=== PATIENT | male | born 1995 | race Caucasian/White ===

== ENCOUNTER 2025-10-21 09:51 | Outpatient (OUT) | payer OTHER, SELFPAY ==
--- OUTSIDE RECORDS SUMMARY | 2014-05-22 08:45 | XMS_ITS | Continuity of Care Document ---
Author [facility] Address [address] [place] [address] [place] [address] Phone Care Team Providers Care Timekeeper Supervisor Name Role Phone Unavailable Unavailable Unavailable Procedures Procedure Date OFFICE/OUTPATIENT VISIT, [facility] STREP A ASSAY W/OPTIC Advance Directives Directive Yes / No Effective Date File Name No Information Encounters Encounter Description Practice Location Reason(s) For Visit Diagnoses Date Provider Providers Copied on Encounter OFFICE/OUTPAT IENT VISIT, [facility], [address] [place] [address] [address], [place], [place], [id number], [place] tel:[phone] Aguilar [address] Dr[address] Sheikh No Information 3 4 No Information Family History Family Member Type Diagnosis Age At Onset No Information Payers Payer name Insurance type Covered democrat ID Authoriza tion(s) [employer] [id number] Social History Type Description Quantity Date Captured Comments Sex Male Smoking Status No Information Chief Complaint And Reason For Visit No Information Reason For Referral Reason For Referral No Information History Of Present Illness Encounter Date Complaint History Of Prese nt Illness No Information Functional Status Date Functional Assessmen t No Information Instructions Date Instruction Additional Infor mation No Information Assessments Type Assessment Date No Information Patient Care Teams Name Effective Dates (start - stop) Status Members No Information
--- OUTSIDE RECORDS SUMMARY | 2014-09-07 09:53 | XMS_ITS | Continuity of Care Document ---
Author Organization [facility] Address [address] [place] [address] Phone Care Team Providers Care Installation Specialist Name Role Phone Matias DO LANDERSGoyo Unavailable Unavailable Advance Directives Directive Yes / No Effective Date File Name No Information Encounters Encounter Description Practice Location Reason(s) For Visit Diagnoses Date Provider Providers Copied on Encounter [facility] , [address] [place], [place], [id number], tel:[phone] [facility] Screening exam for sexually transmitted disease Matias De Luna. [address] [place], [place], [id number], [place]. tel:[phone] Family History Family Member Type Diagnosis Age At Onset No Information Payers Payer name Insurance type Covered libertarian ID Authoriza tion(s) No Information Social History Type Description Quantity Date Captured Comments Sex Male Smoking Status No Information Chief Complaint And Reason For Visit No Information Reason For Referral Reason For Referral No Information Plan Of Treatment Date Type Action Status Future Order: Lab Order Gonorrhe a NAAT (Amp) (GONRHEA), Appointment on: Ordered Future Order: Lab Order Chlamydi a NAAT (CHLAMP), Appointment on: Ordered History Of Present Illness Encounter Date Complaint History Of Prese nt Illness No Information Functional Status Date Functional Assessmen t No Information Instructions Date Instruction Additional Infor mation No Information Assessments Type Assessment Date assessment Screening exam for sexually myers smitted disease Patient Care Teams Name Effective Dates (start - stop) Status Members No Information
--- OUTSIDE RECORDS SUMMARY | 2025-10-21 10:01 | XMS_ITS | Encounter Summary ---
Author Organization [facility] Address [address] [facility] [place] [address] Care Team Providers Care Assistant Program Director Name Role Phone WorkSolomon collins HARLEY-SHEREE Unavailable [phone] Salma Martínez MD Primary Care Provider [phone] Edd Yi PT Unavailable Unavailable Reason for Visit * ReasonCommentsRefill Encounter Details DateTypeDepartmentCare Team (Latest Contact Info)Kqidbhteqjp73/27/2025Refill [facility] [address] [place] [address] Salma Martínez MD [address] [facility] [place] [address] Refill Social History Tobacco UseTypesPacks/DayYears UsedDateSmoking Tobacco: NeverSmokeless Tobacco: NeverAlcohol UseStandard Drinks/WeekCommentsNot Currently0 (1 standard drink = 0.6 oz pure alcohol)Humiliation, Afraid, Rape, and Kick questionnaireAnswerDate RecordedWithin the last year, have you been afraid of your partner or ex-partner?No02/08/2024Within the last year, have you been humiliated or emotionally abused in other ways by your partner or ex-partner?No02/08/2024 Within the last year, have you been kicked, hit, slapped, or otherwise physically hurt by your partner or ex-partner?02/08/2024Within the last year, have you been raped or forced to have any kind of sexual activity by your part ner or ex-partner?No02/08/2024Social Connection and Isolation PanelAnswerDate RecordedIn a typical week, how many times do you talk on the phone with family, friends, or neighbors?Three times a week02/08/2024How often do you get together with friends or relatives?Once a week02/08/2024How often do you attend moravian or sikhism services?Never02/08/2024o you belong to any clubs or organizations such as moravian groups, unions, fraOndaVia or athletic groups, or school groups?No 02/08/2024How often do you attend meetings of the clubs or organizations you belong to?Never02/08/2024re you , , , , never , or living with a partner?Zetorvc5602/08/2024Overall Financial Resource Strain (CARDIA)AnswerDate RecordedHow hard is it for you to pay for the very basics like food, housing, medical care, and heating?Not very hard02/08/2024 PHQ-2AnswerDate RecordedPHQ-2 Ecuwl57412/06/2022[facility] [place] [facility] Occup[facility] - Occupational Stress QuestionnaireAnswerDate RecordedDo you feel stress - tense, restless, nervous, or anxious, or unable to sleep at night because your mind is troubled all the time - these days?Very much02/08/2024Exercise Vital SignAnswerDate RecordedOn average, how many days per week do you engage in moderate to strenuous exercise (like a brisk walk)?3 days02/08/2024On average, how many minutes do you engage in exercise at this level?20 min02/08/2024Hunger Vital SignAnswerDate RecordedWithin the past 12 months, you worried that your food would run out before you got the money to buymore.Never true02/08/2024 Within the past 12 months, the food you bought just didn't last and you didn't have money to get more.Never true02/08/2024RAPARE - TransportationAnswerDate RecordedIn the past 12 months, has lack of transportation kept you from medical appointments or from getting medications?No02/08/2024In the past 12 months, has lack of transportation kept you from meetings, work, or from getting things needed for daily living?No02/08/2024Housing Stability Vital SignAnswerDate RecordedIn the last 12 months, was there a time when you were not able to pay the mortgage or rent on time?No02/08/2024In the last 12 months, how many places have you lived?In the last 12 months, was there a time when you did not have a steady place to sleep or slept in ashelter (including now)?No 02/08/2024EducationAnswerDate RecordedWhat is the highest level of school you have completed or the highest degree you have received?Master's degree (e.g., MA, MS, [employer], MEd, FULL STACK WEB DEVELOPER, SURI)11/05/2022exually ActiveBirth ControlPartners CommentsYesI.U.D.Femalenot planning on pregnancySubstance UseTypesUse/Week CommentsNot CurrentlySex and Gender InformationValueDate RecordedSex Assigned at BirthNot on fileLegal LudVxrn9408/07/2017 12:29 PM EDTGender IdentityNot on file Sexual OrientationNot on filedocumented as of this encounter Miscellaneous Notes * Telephone Encounter - Salma Martínez MD - 08/28/2025 1:10 PM EDT changed to 3 refills. * Telephone Encounter - Noy Luu PharmD - 08/28/2025 10:47 AM EDT Pharmacy is attempting to schedule an appointment for this patient. Per protocol, we will make 1 attempt to contact patient before routing to nurse for follow up. Medication request adjusted to only a 3 month supply to allow time for appointment to be scheduled. Thank you. documented in this encounter Plan of Treatment Not on file documented as of this encounter Visit Diagnoses Diagnosis Depression, unspecified depression type MARTIN (generalized anxiety disorder) Generalized anxiety disorder Episode of recurrent major depressive disorder, unspecified depression episode severity (HCC) documented in this encounter Care Teams Team MemberRelationshipSpecialtyStart DateEnd Date Salma Martínez MD [address] [facility] [place] [address] PCP - GeneralFamily Rhxppegr69/7/23 Solomon Travis APRN-PRESS ASSISTANT AND FEEDER [address] [facility] [place] [address] APNPulmonary Medicine01/31/23 Edd Yi, PT [address] [place] [address] Physical TherapistPhysical Therapy03/05/24documented as of this encounter
--- OUTSIDE RECORDS SUMMARY | 2025-10-21 10:01 | XMS_ITS | Continuity of Care Document ---
Author Organization [facility] Address [address] [place] [address] Care Team Providers Care Store Merchandiser Name Role Phone WorkmanSolomon HARLEY-MANAGER RESPIRATORY CARE Unavailable [phone] Nikky Martínez MD Primary Care Provider [phone] Edd Yi PT Unavailable Unavailable Source Comments The following information is NOT included in Care Everywhere downloads:Psychiatric notes, ECG results, Cardiac Rehab notes, Pulmonary Function notes, data from SmartForms (includes but not limited toPregnancy data,audiograms, eye exams, pre-surgical evaluation notes, well-child exam data).[facility] Encounters DateTypeDepartmentCare HwmxKmnvorhqpah92/27/2025Refill [facility] [address] [place] [address] Nikky Martínez MD Hmlobk8807/30/2024[place]ill [place] [address] Nikky Martínez MD Myaajn2403/31/20241615Ykkkko59/02/2024 9:00 AM [facility] [address] [place] [address] Edd Yi, PT PT Discharge Summary (Visit #7)03/24/20248597Lzcnkx60/25/2024 7:30 AM [facility] [address] [place] [address] Edd Yi, PT PT Visit # (6)03/17/20244442Rtnlyw61/18/2024 8:15 AM [facility] [address] [place] [address] Edd Yi, PT PT Progress Note (Visit #5)03/10/20247246Jksjyt95/11/2024 8:15 AM [facility] [address] [place] [address] Edd Yi, PT PT Visit # (4)03/03/20240553Vykdqp50/04/2024 8:15 AM [facility] [address] [place] [address] Edd Yi, PT PT Visit # (3)02/25/20240107Wmejmt45/19/3001Yanzre54/19/2024 11:15 AM [facility] [address] [place] [address] Edd Yi, PT PT Visit # (2)02/11/2024 5:15 PM [facility] [address] [place] [address] Edd Yi, PT PT Eval (Cervical Radiculopathy with Shoulder Pain)10/06/20232613Yzldnd08/07/2023 8:00 AM ESTOffice Visit [facility] [address] [place] [address] Nikky Martínez MD Annual physical exam (Primary Dx); Need for hepatitis C screening test; Major depressive disorder, recurrent, severe without psychotic features (HCC); MARTIN (generalized anxiety disorder); BMI 38.0-38.9,adult; Chronic pain of both shoulders; Wears vsvrqrl1807/31/2023Refill [facility] [address] [place] [address] Nikky Martínez MD Xqqrwt6104/15/2023 1:40 PM EDTTelemedicine [facility] [address] [place] [address] KatkarinaSolomon APRN-CNP BRIAN on CPAP (Primary Dx); Class 3 severe obesity due to excess calories without serious comorbidity with body mass index (BMI) of 40.0 to 44.9 in adult (HCC)12/31/2022 2:20 PM EST Telemedicine [facility] [address] [place] [address] KatkarinaSolomon APRN-CNP BRIAN (obstructive sleep apnea) (Primary Dx); Class 3 severe obesity due to excess calories without serious comorbidity with body mass index (BMI) of 40.0 to 44.9 in adult ([facility]); Snoring; Daytime fviushtfal37/14/2023Refill [facility] [address] [place] [address] Nikky Martínez MD Vzfpaf6711/08/2022 9:00 PM ESTSleep Study Visit [facility] [address] [place] [address] Snoring (Primary Dx)11/05/2022Telephone [facility] [address] [place] [address] MyrnaFredo feliciano 2Refill [facility] [address] [place] [address] Arash Valera MD Ygoald1707/15/2022efill [facility] [address] [place] [address] Nikky Martínez MD Cdejyr2205/29/2022bstract PATIENT ACUITY SCORE 05/13/2022Telephone [facility] [address] [place] [address] Nikky Martínez MD Encounter opened in error05/08/2022 4:00 PM EDTOffice Visit [facility] [address] [place] [address] Nikky Martínez MD Annual physical exam (Primary Dx); Fatigue, unspecified type; Snoring; Body mass index (BMI) 40.0-44.9, adult ([facility])03/06/2022Telephone [facility] [address] [place] [phone] Nikky Martínez MD speak with /06/2022Refill [facility] [address] [place] [address] Nikky Martínez MD Fzqzjq691Refill [facility] [address] [place] [address] Nikky Martínez MD Kojltd0202/21/2021Orders Only [facility] Internal Medicine [address] [place], [place] [phone] Edwina Tyler MD 07/14/2020Refill [facility] [address] [place], [place] [phone] Nikky Martínez MD APPOINTMENT SCHEDULING; Ljhcsp6101/09/2020Refill [facility] [address] [place], [place] [address] Arash Valera MD Ywvqqa0208/04/2019 8:20 AM EDTOffice Visit [facility] [address] [place] [address] Anisa Palacios MD Prostatitis, unspecified prostatitis type (Primary Dx)06/29/2019Refill [facility] [address] [place], [place] [phone] Anisa Palacios MD Qdjofw0906/16/2019 12:20 PM EDTOffice Visit [facility] [address] [place], [place] [phone] Anisa Plaacios MD Prostatitis, unspecified prostatitis type (Primary Dx)05/26/2019 8:00 AM EDT Office Visit [facility] Medicine [address] [place] [phone] Nikky Martínez MD Depression, unspecified depression type (Primary Dx); MARTIN (generalized anxiety disorder); Episode of recurrent major depressive disorder, unspecified depression episode severity (HCC); Frequent urination; Dysuria; Testicular pain; Screening for STD (sexually transmitted disease); BMI 36.0-36.9,adult03/30/2019Refill [place] [address]509 Arash Valera MD Txspel2508/31/2018Refill [place] 0107509 Arash Valera MD Zgivmm6105/23/2018Refill [place] [address]509 Arash Valera MD Ktiinr4801/18/2018 1:40 PM ESTOffice Visit [place] [phone] Arash Valera MD Episode of recurrent major depressive disorder, unspecified depression episode severity (HCC) (Primary Dx); Tinnitus, bilateral; FH: hearing loss; Excessive daytime sleepiness; Depression, unspecified depression type; MARTIN (generalized anxiety disorder); Major depressive disorder, recurrent, severe without psychotic features (HCC) 10/15/2017 2:00 PM ESTOffice Visit [address] [address] Arash Valera MD Episode of recurrent major depressive disorder, unspecified depression episode severity (HCC) (Primary Dx); Major depressive disorder, recurrent, severe without psychotic features (HCC); Gynecomastia, male; History of ETOH abuse; Excessive daytime jdxlfoilcd92/21/2017 2:00 PM EDTOffice Visit [address] [address] Arash Valera MD Episode of recurrent major depressive disorder, unspecified depression episode severity (HCC) (Primary Dx); MARTIN (generalized anxiety disorder); Depression, unspecified depression type; Routine general medical examination at a health care /08/2017 12:30 PM EDTOffice Visit [facility] [address] [place] [address], [address] [place] [phone] Freddie Ag, ENGAGEMENT QUALITY CONSULTANT-MANAGER RESPIRATORY CARE Depression, unspecified depression type (Primary Dx) Allergies Active AllergyReactionsCriticalityNoted DateCommentsAmoxicillinDiarrhea 06/14/2016 Medications MedicationSigDispense QuantityRefillsLast FilledStart DateEnd DateStatus FLUoxetine (PROZAC) 20 MG capsule Indications:Depression, unspecified depression type,MARTIN (generalized anxiety disorder),Episode of recurrent major depressive disorder, unspecified depression episode severity (HCC)Take 1 Capsule by mouth daily. 90 Capsule 5Active Active Problems ProblemNoted DateDiagnosed DateRadiculopathy, pnzahaui68/18/2024ilateral shoulder pain02/10/2024bnormal ytymwph9702/10/2024FH: hearing loss01/18/2018 Tinnitus, gnljfjezz06/19/2018Gynecomastia, male11/11/2017Major depressive disorder, recurrent, severe without psychotic ugvmyajb80/22/2016 Overview (09/02/2017): Overview: 08/15/16 (PCP) - Establishing care at [facility], [facility] (PCP Dr. 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 Goals ??? Abstinence from alcohol While enrolled in PHP/IOP, Justin agrees to abstain from drinking alcohol or using illicit substances. Justin understands that if he has issues with this, he can always talk with staff and considerattending 12 step meetings. 06/26: Improvement. Justin reports continued abstinence from alcohol since starting the program andhas been forthcoming in groups about urges to drink. He reports successfully navigating these urgesby utilizing the support of his girlfriend. 07/07: Justin reports that he has and continues to maintain abstinence from alcohol despite several opportunities to drink. Justin has reported that he continues to have urges, but is able to recognize that his most powerful urges come when he is agitated or irritated, and is able to tell himself that these may be the worst times to drink. He continues to utilize the support of his girlfriend in this endeavor. ??? Aftercare Justin agrees to actively participate in discharge and aftercare planning. Prior to discharge, Justin will have appointments set up with an outpatient counselor as well as an outpatient psychiatrist. Tentative discharge date: 07/18/1607/07: Justin reports that he feels ready for discharge by the end of this week. He agrees to make an an appointment with his current outpatient counselor at [facility] for sometime next week. ??? Assertiveness Training By the conclusion of treatment, Justin will report increased awareness in communication skills, communication styles, and will know how to use an Assertiveness Script. Justin will attend all groupson interpersonal effectiveness and will utilize process group to practice being assertive. 07/07: Justin's treatment here has focused primarily on abstinence from alcohol and learning how to engage with his emotions. He has been able to recognize a tendency to get lost in his thoughts and resentments as well as a tendency to feel better when he engages with others, including by making eyecontact. This insight shows evidence in improved assertiveness. He will attend Assertiveness Training group this week before discharge. ??? Emotional Literacy By the conclusion of treatment, Justin will report a better understanding of emotions from a functional perspective, will be able to discern between thoughts (which can be challenged) and emotions (which need to be validated), he will begin using basic Emotional Regulation skills, and will report an improved ability to address his emotions effectively rather than stuff them. 06/26: Marked improvement. Justin has shown a willingness to engage with and express his feelings in group and has shown a great deal of effort in practicing authenticity in front of his peers. 07/07: Marked improvement. Justin continues to demonstrate consistent improvement in his ability to not only identify and describe his emotions on cue, but also to explore thoughts and behaviors that may contribute to his emotional state. He continues to have some struggles with recognizing and regulating anger, frustration, irritation, etc. He is able to recognize how his upbringing may have contributed to this, as he learned at a young age that it was not okay to be upset or to experience emotions that bother him. Subsequently, Justin tries to stuff his emotions which has the opposite intended effect. Justin agrees to try out a mood/emotions journal, either pen and paper or an baljit for his phone. ??? Taking medication as prescribed - medication compliance Justin agrees to take medications as prescribed and will talk with staff if he has any questions or experiences any side effects. Justin does not anticipate any compliance issues with medication atthis time. He will follow up with SHEREE Garcia throughout his enrollment in PHP/IOP. MARTIN (generalized anxiety disorder)11/30/2015 Overview (09/02/2017): Overview: 08/15/16: MARTIN-7: 11 Resolved Problems ProblemNoted DateDiagnosed DateResolved DateExcessive daytime sleepiness Serotonin iimwxofj35 Overview (08/20/2017): Mild, while was on prozac 20mg. Was told he was okay to continue 20mg, but changed to AM. No current sx. Alcohol use ftiroijd95 Overview (09/02/2017): Overview: 08/15/16 (PCP): - Endorsed 20 drinks/wk with cravings during IP admission in 05/2016 - Started on naltrexone to reduce cravings after 05/2016 admission - Has father and paternal grandfather with alcoholism MDD (major depressive disorder) Immunizations ImmunizationAdministration DatesNext DueInfluenza, Injectable, MDCK, Quadrivalent, Preservative Free (NWH=444)09/26/2022Influenza, injectable, quadrivalent, preservative free (UQB=497)09/18/2023Influenza, injectable, trivalent, preservative free (MPK=179)4Pfizer Monovalent (12+ yrs) SARS-COV-2 (COVID-19) vaccine, mRNA, spike protein, LNP, pres. free, 30mcg/0.3mL dose (KYU=549)03/18/2021,02/25/2021Td (adult), 2 Lf tetanus toxoid, preservative free, adsorbed (CVX=09)06/14/2016Tdap (RXQ=819)02/25/2022 Family History Medical HistoryRelationNameCommentsDiabetes MellitusFatherHypertensionFather Hearing LossMaternal GrandmotherHearing LossMotherCancerPaternal Grandfather pancreatic cancerMyocardial InfarctionPaternal GrandfatherPancreatic Cancer Paternal GrandmotherRelationNameStatusCommentsFatherAliveMaternal Grandfather AliveMaternal GrandmotherAliveMotherAlivePaternal GrandfatherDeceasedPaternal GrandmotherDeceased Social History Tobacco UseTypesPacks/DayYears UsedDateSmoking Tobacco: Never Assessed Humiliation, Afraid, Rape, and Kick questionnaireAnswerDate RecordedWithin the last year, have you been afraid of your partner or ex-partner?No02/08/2024Within the last year, have you been humiliated or emotionally abused in other ways by your partner or ex-partner?No02/08/2024Within the last year, have you been kicked, hit, slapped, or otherwise physically hurt by your partner or ex-partner?No02/08/2024Within the last year, have you been raped or forced to have any kind of sexual activity by your partner or ex-partner?No02/08/2024 Social Connection and Isolation PanelAnswerDate RecordedIn a typical week, how many times do you talk on the phone with family, friends, or neighbors?Three times a week02/08/2024How often do you get together with friends or relatives? Once a week02/08/2024How often do you attend jehovah's witness or baptist services?Never 02/08/2024o you belong to any clubs or organizations such as jehovah's witness groups, unions, fraternal or athletic groups, or school groups?No02/08/2024How often do you attend meetings of the clubs or organizations you belong to?Never02/08/2024 Are you , , , , never , or living with a partner?Swagvpp2002/08/2024Overall Financial Resource Strain (CARDIA)AnswerDate RecordedHow hard is it for you to pay for the very basics like food, housing, medical care, and heating?Not very hard02/08/2024HQ-2AnswerDate RecordedPHQ-2 Youpg14912/06/2022[facility] [place] [facility] Occup[facility] Health - Occupational Stress QuestionnaireAnswerDate RecordedDo you feel stress - tense, restless, nervous, or anxious, or unable to sleep at night because yourmind is troubled all the time - these days?Very much02/08/2024Exercise Vital SignAnswerDate RecordedOn average, how many days per week do you engage in moderate to strenuous exercise (like a brisk walk)?3 days02/08/2024On average, how many minutes do you engage in exercise at this level?20 min02/08/2024Hunger Vital SignAnswerDate Recorded Within the past 12 months, you worried that your food would run out before you got the money to buymore.Never true02/08/2024Within the past 12 months, the food you bought just didn't last and you didn't have money to get more.Never true 02/08/2024RAPARE - TransportationAnswerDate RecordedIn the past 12 months, has lack of transportation kept you from medical appointments or from getting medications?No02/08/2024In the past 12 months, has lack of transportation kept you from meetings, work, or from getting things needed for daily living?No 02/08/2024Housing Stability Vital SignAnswerDate RecordedIn the last 12 months, was there a time when you were not able to pay the mortgage or rent on time?No 02/08/2024In the last 12 months, how many places have you lived?In the last 12 months, was there a time when you did not have a steady place to sleep or slept in ashelter (including now)?No02/08/2024EducationAnswerDate RecordedWhat is the highest level of school you have completed or the highest degree you have received?Master's degree (e.g., MA, MS, [employer], MEd, BATCH M[employer]ING [employer]UCK [employer], SURI) 11/05/2022ex and Gender InformationValueDate RecordedSex Assigned at BirthNot on fileLegal CpxUsty0508/07/2017 12:29 PM EDTGender IdentityNot on fileSexual OrientationNot on file Last Filed Vital Signs Vital SignReadingTime TakenCommentsBlood Dtglsxno991/6710/06/2023 8:07 AM EST Qcntw933910/06/2023 8:07 AM PHUTtxovfnytca47.4 ??C (97.6 ??F)10/06/2023 8:07 AM ESTRespiratory Ealt9887 8:13 AM EDTOxygen Saturation--Inhaled Oxygen Concentration--Bkaime271.7 kg (275 lb)10/06/2023 8:07 AM DAZLoltom497.7 cm (5' 10.75 )10/06/2023 8:07 AM ESTBody Mass Index38.6310/06/2023 8:07 AM EST Plan of Treatment Not on file Procedures Procedure NamePriorityDate/TimeAssociated DiagnosisCommentsEMMI SOCIAL DHBYEZZJVVHohiwzd05/12/2024 1:24 PM EDT HEMOGLOBIN M9TZhunewq39/07/2023 8:41 AM EST BMI 38.0-38.9,adult FULL LIPID YQEIYPSCkqmzrp24/07/2023 8:41 AM EST BMI 38.0-38.9,adult HEPATITIS C NSCLGAQDEovxuxm98/07/2023 8:41 AM EST Need for hepatitis C screening test SLEEP STUDY (BRIAN/PSG) SERVICE YROCUQFSptkbuy81/10/2022 8:58 AM EST Snoring HIV1 HIV2 AGAB PFNNOlyemlx73/09/2022 4:15 PM EDT Fatigue, unspecified type HC HEPATIC FUNCTION IVYRUFdmdaov68/09/2022 4:15 PM EDT Fatigue, unspecified type BASIC METABOLIC ELPSIIiqpnmy70/09/2022 4:15 PM EDT Fatigue, unspecified type YDPLxrlluj41/09/2022 4:15 PM EDT Fatigue, unspecified type COMPLETE BLOOD MWUSNSqltiog12/09/2022 4:15 PM EDT Fatigue, unspecified type FULL LIPID KNTKDMYPwngjtq33/09/2022 4:15 PM EDT Annual physical exam HEMOGLOBIN I2AJjwreot06/09/2022 4:15 PM EDT Annual physical exam URINALYSIS,AUTO-IN CSLRVWDozprxg89/18/2019 1:16 PM EDT Prostatitis, unspecified prostatitis type US SCROTUM/DOPPLER (VAISHNAVI)Xheqtdb8906/09/2019 8:40 AM EDT GLUCOSE, FINGERSTICK-IN SLSVUMGwlhkru85/27/2019 9:05 AM EDT Frequent urination GC/CHLAMYDIA/TRICHOMONAS LTEBJOLHBDOTDEkovgwh06/27/2019 8:54 AM EDT Screening for STD (sexually transmitted disease) SYPHILIS TOTAL ANTIBODY (IGG/IGM) WITH REFLEX CONFIRMATION, SERUMRoutine 05/26/2019 8:54 AM EDT Screening for STD (sexually transmitted disease) HIV1 HIV2 AGAB JAUAHagvwxo75/27/2019 8:54 AM EDT Screening for STD (sexually transmitted disease) FULL LIPID UHZNUOBLwvzoyu36/27/2019 8:54 AM EDT BMI 36.0-36.9,adult HEMOGLOBIN A8WYrobpid27/27/2019 8:54 AM EDT Frequent urination URINALYSIS,AUTO-IN UYNNPVAgrkqgc39/27/2019 8:30 AM EDT Dysuria Results * YUSUF SOCIAL CONNECTION (02/09/2024 1:24 PM EDT)ComponentValueRef RangeTest MethodAnalysis TimePerformed AtPathologist SignatureEMMI [facility] - WHAT IS SOCIAL ISOLATION?NELLY URL [email or web address] ISSUE DATEFeb 09, 2024EMMIEMMI START DATE Feb 09, 2024EMMIEMMI COMPLETED 2023EMMIEMMI EXPIRATION DATEMay 09, 2024EMMIEMMI MESSAGE EVENTCompletedEMMISpecimen (Source)Anatomical Location / LateralityCollection Method / VolumeCollection TimeReceived Time02/09/2024 1:24 PM EDT Narrative Authorizing ProviderResult TypeResult StatusPatient Education Provider (Yusuf)EC EMMIFinal ResultPerforming OrganizationAddressCity/State/ZIP CodePhone Number YUSUF [address] [place] [address] * HEPATITIS C ANTIBODY (10/06/2023 8:41 AM EST)ComponentValueRef RangeTest MethodAnalysis TimePerformed AtPathologist SignatureHepatitis C AbNonreactive Bwpccnyiipe33/07/2023 3:49 PM ESTS PATHOLOGY LABORATORYSpecimen (Source) Anatomical Location / LateralityCollection Method / VolumeCollection Time Received TimeBloodBLOOD SPECIMEN / UnknownVenipuncture / Xpexcyn4210/06/2023 8:41 AM EST10/06/2023 2:35 PM EST Narrative Authorizing ProviderResult TypeResult StatusNikky LAN[place] HIV/HEP/SYPH TESTINGFinal ResultPerforming OrganizationAddressCity/State/ZIP CodePhone Number S PATHOLOG[facility] LAB[facility] [address] [place] [address] * (ABNORMAL) FULL LIPID PROFILE (10/06/2023 8:41 AM EST)ComponentValueRef Range Test MethodAnalysis TimePerformed AtPathologist PcswskkgcPbkatpevehl870<200 mg/dL10/06/2023 3:02 PM [facility] PATHOLOGY OLDYTHLJPDRkeyrcfozgcpk409<151 mg/dL 10/06/2023 3:02 PM [facility] PATHOLOGY LABORATORYHDL Bvlmchnagja60(L)>44 mg/dL 10/06/2023 3:02 PM [facility] PATHOLOGY LABORATORYLDL aafxqcudphu98<111 mg/dL 10/06/2023 3:02 PM [facility] PATHOLOGY LABORATORYNon-HDL Wjjmrvipsux84<130 mg/dL 10/06/2023 3:02 PM [facility] PATHOLOGY LABORATORYChol/HDL Ratio3.54<5.00 10/06/2023 3:02 PM [facility] PATHOLOGY LABORATORYLDL/HDL Ratio2.18<3.5710/06/2023 3:02 PM [facility] PATHOLOGY LABORATORYSpecimen (Source)Anatomical Location / LateralityCollection Method / VolumeCollection TimeReceived TimeBloodBLOOD SPECIMEN / UnknownVenipuncture / Cufsbvy9010/06/2023 8:41 AM EST10/06/2023 2:39 PM EST Narrative Authorizing ProviderResult TypeResult Wyatt [facility] LABFinal ResultPerforming OrganizationAddressCity/State/ZIP CodePhone Number [facility] PATHOLOGY LABORATORY [address] [place] [address] * HEMOGLOBIN A1C (10/06/2023 8:41 AM EST)ComponentValueRef RangeTest Method Analysis TimePerformed AtPathologist SignatureHemoglobin A1c5.14.0 - 5.6 % 10/06/2023 9:38 PM [facility] PATHOLOGY LABORATORYEstimated Avg Iggwszl525vf/dL10/06/2023 9:38 PM [facility] PATHOLOGY LABORATORYSpecimen (Source)Anatomical Location / LateralityCollection Method / VolumeCollection TimeReceived TimeBloodBLOOD SPECIMEN / UnknownVenipuncture / Yxrpjpj6710/06/2023 8:41 AM EST10/06/2023 2:36 PM EST Narrative Authorizing ProviderResult TypeResult Wyatt [facility] LABFinal ResultPerforming OrganizationAddressCity/State/ZIP CodePhone Number [facility] PATH[facility] [address] [place], [place] [address] * SLEEP STUDY (BRIAN/PSG) SERVICE REQUEST (11/08/2022 8:58 AM EST)Specimen (Source)Anatomical Location / LateralityCollection Method / VolumeCollection TimeReceived Time11/08/2022 8:58 AM EST Narrative [facility] - 11/08/2022 8:58 AM EST DIAGNOSTIC POLYSOMNOGRAPHY REPORT Last, First: ??JUSTIN CAZARES ?? Gender: ??Male ??Age (years): ??27 Weight (lbs): ??292.30 ??: ??1995 BMI: ??42 ??Referring: ??NIKKY MARTÍNEZ [place] Score: ??11 ??Interpreting: ??Roxi James MD Construction Supervisor: ??Luz Elena Webber ?? Study Type: ??NPSPaty Study Date: ??11/08/2022 ??Location: ??[facility] STUDY SUMMARY: DIAGNOSES: - Severe Obstructive Sleep Apnea (G47.33) - Obesity Class 3 PSG with an AHI of 9.3 by CMS criteria vs. 31.1 by AASM criteria, associated with oxyhemoglobin desaturations to a vishnu of 89.0%. Obstructive sleep apnea was worse during REM sleep and in the supine position. BMI 42 kg/m2; ESS 11 out of 24 CLINICAL INFORMATION: I reviewed each epoch of the polysomnogram of JUSTIN CAZARES performed on 11/08/2022 at [place] ([facility]): [place] [facility] [place] [address] Study indication: This study was obtained to evaluate for sleep disordered breathing. The patient complains of Excessive Daytime Sleepiness, Snoring, Not feeling refreshed after sleep. Medical history is significant for MARTIN, depression. Sleep behaviors: See questionnaire. Patient-reported prescribed medications include: flouxetine. Patient self-administered medications on the night of the study include: No sleep medicine administered. SLEEP STUDY PROTOCOL: Sleep stages were monitored with EEG (F4-M1, C4-M1, O2-M1), EOG (E1-M2, E2-M2), and submental EMG. Arterial oxygen saturation was followed with a finger-pulse oximeter. Air flow was sensed by both oronasal thermistor and oronasal pressure transducer during the diagnostic phase of the study. Respiratory effort was monitored with chest wall and abdominal RIP belts. Snoring was detected with a microphone near the mouth. Oxygen saturation was monitored by pulse oximetry. Precordial leads followed cardiac rhythm. EMG monitoring of each leg was performed during this study. Body position was determined by video monitoring. Special monitoring: ??None Apneas were scored as a reduction of airflow in the thermistor signal by at least 90% from baselinefor at least 10 seconds with continued effort to breath (obstructive) or in the absence of effort (central) or a combination of both (mixed). Hypopneas were scored as a >=30% decrease in airflow associated with either a 4% decrease in oxygen saturation ([facility] AHI) or either a 3% decrease in oxygen saturation or an arousal (AASM AHI). Respiratory event-related arousals (RERAs) were scored if there is a sequence of breaths lasting at least 10 seconds, characterized by increasing respiratory effort or flattening of the nasal pressure waveform leading to an arousal from sleep, when the sequence of breaths does not meet criteria for an apnea or hypopnea. The CMS respiratory disturbance index (RDI) reported below is calculated by adding apneas plus hypopneas plus RERAs. Hypoventilation and Regan Sarmiento Respiration are scored according to the Rules for Scoring Respiratory Events in Sleep: Update of the 2007 AASM Manual for the Scoring of Sleep and Associated Events (J Clin Sleep Med, August 2012). This was a diagnostic study. No therapeutic intervention was performed. SLEEP ARCHITECTURE: The study was initiated at 9:21:31 PM and terminated at 05:42:49 AM, with lights out at 10:33:45 PMand lights on at 05:23:53 AM. The total recorded time was 493.1 minutes. EEG confirmed total sleep time was 328 minutes yielding a sleep efficiency of 80.0%. Sleep onset after lights out was 41.3 minutes with a REM latency of 139.0 minutes. The patient spent 4.4% of total sleep time in Stage N1, 65.1% in Stage N2, 9.1% in Stages N3, and 21.3% in REM. Wake after sleep onset (WASO] was 41.0 minutes. The Arousal Index was 26.5/hour. No significant abnormalities were observed in the electroencephalogram tracings. Sleep efficiency was reduced. Sleep latency was normal. REM latency was prolonged. Stage N3 sleep was reduced. REM sleep was normal. RESPIRATORY PARAMETERS: Snoring of moderate intensity and intermittent flow limitation were noted. There were a total of 170 respiratory disturbances out of which 7 were apneas ( 1 obstructive, 0 mixed, 6 central) and 163 hypopneas. The apnea/hypopnea index (AHI) was 9.3 by CMS criteria and 31.1 by AASM criteria. The central sleep apnea index was 1.1 events/hour. The REM AHI was 57.4 events/hour and NREM AHI was 24.0 events/hour. The supine AHI was 37.7 events/hour and the non supine AHI was 17.5. Respiratory disturbances were associated with oxygen desaturation down to a vishnu of 89.0% during sleep. The mean oxygen saturation during the study was 95.2%. The cumulative time under 88% oxygen saturation was 0 minutes. LEG MOVEMENT DATA: There were 0 periodic limb movements (PLMs). The PLM index was 0 per hour. There were 0 arousals related to PLMs and the PLM arousal index was 0 per hour. CARDIAC DATA: The average pulse rate was 66.6 bpm. The minimum pulse rate was 52.0 bpm while the maximum pulse rate was 102.0 bpm. Additonal rhythm abnormalities include: PVCs. IMPRESSIONS: - Severe Obstructive Sleep apnea(BRIAN) RECOMMENDATIONS: - Positive airway pressure or adjunctive therapies are indicated for the patient's sleep apnea. Consider Auto CPAP 6-16 cm H2O. - Weight management is beneficial to the patient's health and should be considered. Authorizing ProviderResult TypeResult StatusSadaniel LANGFORD SLEEP LABFinal ResultPerforming OrganizationAddressty/State/ZIP CodePhone Number [facility] [address] [place] [address], [facility] [[email or web address]] * HIV1 HIV2 AGAB SCRN (05/08/2022 4:15 PM EDT)ComponentValueRef RangeTest Method Analysis TimePerformed AtPathologist SignatureHIV Ag-Ab ScreenNon-Reactive Non-Rmvznyia66/09/2022 10:45 PM [facility] LABORATORYComment:No laboratory evidence for HIV Infection. Negative result does not rule out acute HIV infection. Ifacute HIV infection is suspected, recommend ordering an HIV-1 RNA quanitification test.Specimen (Source)Anatomical Location / Laterality Collection Method / VolumeCollection TimeReceived TimeBloodBLOOD SPECIMEN / UnknownVenipuncture / Hhmtsgy6305/08/2022 4:15 PM EDT05/08/2022 8:21 PM EDT Narrative [facility] - 05/08/2022 10:45 PM EDT HIV Information: ??[place] Rev. code 3701.243(E): This information has been disclosed to you from confidential records protected from disclosure by state law. ??You shall make no further disclosure of this information without the specific, written, and informed release of the individual to whom it pertains, or as otherwise permitted by state law. ??A general authorization for the release of medical or other information is not sufficient for the purpose of the release of HIV test results or diagnoses. Authorizing ProviderResult TypeResult StatusSadaniel LANGFORD HIV/HEP/SYPH TESTINGFinal ResultPerforming OrganizationAddressPomerene Hospital/State/ZIP CodePhone Number [facility] [address] [place] [address] * (ABNORMAL) HEPATIC FUNCTION PANEL (05/08/2022 4:15 PM EDT)ComponentValueRef RangeTest MethodAnalysis TimePerformed AtPathologist SignatureAlbumin4.53.4 - 5.1 g/dL05/08/2022 10:06 PM [facility] LABORATORYBilirubin, Direct<0.10 (L)0.10 - 0.30 mg/dL05/08/2022 10:06 PM [facility] LABORATORYBilirubin, Total0.40.1 - 1.5 mg/dL05/08/2022 10:06 PM ED[facility] PATH[facility]Y LABORATORYAlkaline Jlstuwmlrht7816 - 190 IU/L05/08/2022 10:06 PM [facility] LABORATORYALT (SGPT)237 - 40 IU/L05/08/2022 10:06 PM [facility] LABORATORYAST (SGOT)21 7 - 40 IU/L05/08/2022 10:06 PM [facility] LABORATORYProtein, Total6.76.2 - 8.3 g/dL05/08/2022 10:06 PM [facility] LABORATORYSpecimen (Source) Anatomical Location / LateralityCollection Method / VolumeCollection Time Received TimeBloodBLOOD SPECIMEN / UnknownVenipuncture / Zpxagul4205/08/2022 4:15 PM EDT05/08/2022 8:21 PM EDT Narrative Authorizing ProviderResult TypeResult StatusSadaniel Martínez MD98 GENERAL LABFinal ResultPerforming OrganizationAddressCity/State/ZIP CodePhone Number [facility] [address] [place] [phone] * BASIC METABOLIC PANEL (05/08/2022 4:15 PM EDT)ComponentValueRef RangeTest MethodAnalysis TimePerformed AtPathologist ZhroumvdaTeqcwwt2006 - 110 mg/dL 05/08/2022 9:56 PM [facility] BNTKPDJYKPAfbgnq697080 - 148 mmol/L 05/08/2022 9:56 PM [facility] LABORATORYPotassium4.03.3 - 5.3 mmol/L 05/08/2022 9:56 PM [facility] LABORATORYCarbon Lgxsoli9677 - 30 mmol/L 05/08/2022 9:56 PM [facility] LKUILLJFNRGtljfkky59380 - 111 mmol/L 05/08/2022 9:56 PM [facility] LABORATORYBlood Urea Vfvmpfsj961 - 22 mg/dL05/08/2022 9:56 PM [facility] LABORATORYCreatinine0.830.80 - 1.30 mg/dL05/08/2022 9:56 PM [facility] LABORATORYCalcium9.18.4 - 10.4 mg/dL 05/08/2022 9:56 PM [facility] LABORATORYAnion Arr8339 - 9:56 PM [facility] LABORATORYEstimated GFR (CKD-EPI)122>=60 mL/min/1.68uqv5305/08/2022 9:56 PM [facility] LABORATORYComment: 2020 CKD EPI Equation using Creatinine without Race Comment: ??Estimated glomerular filtration rate (eGFR) is calculated without a race coefficient. Values should be interpreted in the context of the patient's full clinical presentation. Reference: 1. Rico C, Marshal M, Meir GAMINO, et al.. A Unifying Approach for GFR Estimation: Recommendations of the NKF-ASN Task Force on Reassessing the Inclusion of Race in Diagnosing Kidney Disease. AmericanJournal of Kidney Diseases 202;79(2):268-88.e1. 2. N Engl J Med 2021 Vol. 385 Issue 19 Pages 9722-1940 Specimen (Source)Anatomical Location / LateralityCollection Method / Volume Collection TimeReceived TimeBloodBLOOD SPECIMEN / UnknownVenipuncture / Unknown 05/08/2022 4:15 PM EDT05/08/2022 8:21 PM EDT Narrative Authorizing ProviderResult TypeResult StatusSadaniel Martínez MD98 GENERAL LABFinal ResultPerforming OrganizationAddressCity/State/ZIP CodePhone Number [facility] [address] [place] [phone] * (ABNORMAL) COMPLETE BLOOD COUNT (05/08/2022 4:15 PM EDT)ComponentValueRef RangeTest MethodAnalysis TimePerformed AtPathologist SignatureWBC8.04.5 - 11.5 K/uL05/08/2022 8:21 PM [facility] LABORATORYRBC4.914.50 - 5.90 M/uL 05/08/2022 8:21 PM [facility] IWTNBOOXFODtcqvzwwit88.7(L)13.9 - 16.3 g/dL05/08/2022 8:21 PM [facility] KTPOJGDCNWPbljuxbpzd00.0(L)41.0 - 53.0 %05/08/2022 8:21 PM [facility] AXDWKZDGTZEGU6774 - 100 fL05/08/2022 8:21 PM [facility] VJENUNWDEVJKL31.026.0 - 34.0 pg05/08/2022 8:21 PM [facility] OPQBMGCYMQAJRY79.332.0 - 35.9 g/dL05/08/2022 8:21 PM [facility] UYTQPHACADVusyumej327070 - 400 K/uL05/08/2022 8:21 PM [facility] LABORATORYRDW-CV13.111.5 - 14.5 %05/08/2022 8:21 PM [facility] LABORATORYMPV9.07.5 - 11.2 fL05/08/2022 8:21 PM [facility] Specimen (Source)Anatomical Location / LateralityCollection Method / Volume Collection TimeReceived TimeBloodBLOOD SPECIMEN / UnknownVenipuncture / Azsuoin2505/08/2022 4:15 PM EDT05/08/2022 8:13 PM EDT Narrative Authorizing ProviderResult TypeResult Wyatt MCHUGH GENERAL LABFinal ResultPerforming OrganizationAddressty/State/ZIP CodePhone Number [facility] [address] [place] [phone] * TSH (05/08/2022 4:15 PM EDT)ComponentValueRef RangeTest MethodAnalysis Time Performed AtPathologist SignatureTSH1.5590.450 - 5.330 uIU/mL05/08/2022 10:11 PM [facility] LABORATORYSpecimen (Source)Anatomical Location / LateralityCollection Method / VolumeCollection TimeReceived TimeBloodBLOOD SPECIMEN / UnknownVenipuncture / Udcehug9605/08/2022 4:15 PM EDT05/08/2022 8:21 PM EDT Narrative Authorizing ProviderResult TypeResult StatusNikky MCHUGH GENERAL LABFinal ResultPerforming OrganizationAddressty/State/ZIP CodePhone Number [facility] [address] [place] [phone] * (ABNORMAL) FULL LIPID PROFILE (05/08/2022 4:15 PM EDT)ComponentValueRef Range Test MethodAnalysis TimePerformed AtPathologist UuhhytrspDnjstxuhrhj398<200 mg/dL05/08/2022 10:06 PM [facility] ZMGGYSROIZXzfmwdtfuvebw685<151 mg/dL 05/08/2022 10:06 PM [facility] LABORATORYHDL Vnofcfxjazb77(L)>44 mg/dL 05/08/2022 10:06 PM [facility] LABORATORYLDL xaieylhfqul994<111 mg/dL 05/08/2022 10:06 PM [facility] LABORATORYNon-HDL Adpqdjzbzft822<130 mg/dL05/08/2022 10:06 PM [facility] LABORATORYChol/HDL Ratio4.00<5.00 05/08/2022 10:06 PM [facility] LABORATORYLDL/HDL Ratio2.64<3.57 05/08/2022 10:06 PM [facility] LABORATORYSpecimen (Source)Anatomical Location / LateralityCollection Method / VolumeCollection TimeReceived Time BloodBLOOD SPECIMEN / UnknownVenipuncture / Mxoaonf8305/08/2022 4:15 PM EDT 05/08/2022 8:21 PM EDT Narrative Authorizing ProviderResult TypeResult Wyatt MCHUGH GENERAL LABFinal ResultPerforming OrganizationAddressCity/State/ZIP CodePhone Number [facility] [address] [place] [phone] * HEMOGLOBIN A1C (05/08/2022 4:15 PM EDT)ComponentValueRef RangeTest Method Analysis TimePerformed AtPathologist SignatureHemoglobin A1c5.14.0 - 5.6 % 05/09/2022 2:35 AM [facility] PATHOLOG[facility] LABORATORYEstimated Avg Lfwyqol249tg/dL05/09/2022 2:35 AM [facility] PATH[facility] LABORATORYSpecimen (Source)Anatomical Location / LateralityCollection Method / VolumeCollection TimeReceived TimeBloodBLOOD SPECIMEN / UnknownVenipuncture / Aiibvvv9405/08/2022 4:15 PM EDT05/08/2022 8:36 PM EDT Narrative Authorizing ProviderResult TypeResult Wyatt MCHUGH GENERAL LABFinal ResultPerforming OrganizationAddressCity/State/ZIP CodePhone Number [facility] [address] [place] [phone], [facility] [[email or web address] * (ABNORMAL) URINALYSIS,AUTO-IN OFFICE (06/16/2019 1:16 PM EDT)ComponentValueRef RangeTest MethodAnalysis TimePerformed AtPathologist SignatureGlucoseNegative Negative mg/dLMH L[facility]RO SURGBilirubinNegativeNegative L[facility] URO SURGKetones NegativeNegative mg/dL [facility] SURGSpec Gravity1.0151.005 - 1.030MH [facility] SURGBloodNegativeNegative [facility] SURGpH8.0(A)5.0 - 8.0MH [facility]G ProteinTrace(A)Negative mg/dL [facility] SURGUrobilinogen0.20.1 - 1.0 mg/dL [facility] SURGNitriteNegativeNegative L[facility] URO SURGLeuk. EsteraseNegative Negative [facility] SURGColorYellowYellow [facility] SURGAppearanceClearClear [facility] SURGSpecimen (Source)Anatomical Location / LateralityCollection Method / VolumeCollection TimeReceived TimeUrineURINE SPECIMEN / Unknown 06/16/2019 1:16 PM EDT Narrative Authorizing ProviderResult TypeResult StatusAnisa LANGFORD BACK OFFICE LABS Final ResultPerforming OrganizationAddressCity/State/ZIP CodePhone Number [facility] [address] [place] [phone] * US SCROTUM/DOPPLER (06/09/2019 8:40 AM EDT)Anatomical RegionLateralityModality N/AOtherSpecimen (Source)Anatomical Location / LateralityCollection Method / VolumeCollection TimeReceived Time06/09/2019 8:40 AM EDT Narrative 06/09/2019 5:15 PM EDT EXAMINATION: US SCROTUM AND CONTENTS/DOPPLER CLINICAL HISTORY: testicular pain TECHNOLOGISTS NOTE: Left side pain w/ urination/intercourse for 2 months, ??Pt Denies pain today COMPARISON: None TECHNIQUE: Ultrasound real time scan with image documentation of the scrotal contents was performed. Additionally, color and spectral Doppler evaluation was performed. FINDINGS: TESTES Normal in size and echotexture, without focal lesion. Color Doppler: Normal color Doppler flow pattern. Right testis size: 5.1 x 2.5 x 3.1 cm Left testis size: 4.9 x 2.3 x 3.0 ??cm EPIDIDYMIDES Normal in size and echotexture, without focal lesion. Color Doppler: Normal color Doppler flow pattern. ?? HYDROCELE A left hydrocele measures at least 3.0 x 2.8 x 2.8 cm and contains low-level internal echoes. A small volume of fluid right hemiscrotum is slightly greater than normal (small hydrocele). VARICOCELE None. OTHER FINDINGS None. IMPRESSION: 1. Normal appearance of the testicles. 2. Moderate size complex left hydrocele. Small right hydrocele. MACRO: None Procedure Note John Caceres MD - 06/09/2019 EXAMINATION: US SCROTUM AND CONTENTS/DOPPLER CLINICAL HISTORY: testicular pain TECHNOLOGISTS NOTE: Left side pain w/ urination/intercourse for 2 months, Pt Denies pain today COMPARISON: None TECHNIQUE: Ultrasound real time scan with image documentation of the scrotal contents was performed. Additionally, color and spectral Doppler evaluation was performed. FINDINGS: TESTES Normal in size and echotexture, without focal lesion. Color Doppler: Normal color Doppler flow pattern. Right testis size: 5.1 x 2.5 x 3.1 cm Left testis size: 4.9 x 2.3 x 3.0 cm EPIDIDYMIDES Normal in size and echotexture, without focal lesion. Color Doppler: Normal color Doppler flow pattern. HYDROCELE A left hydrocele measures at least 3.0 x 2.8 x 2.8 cm and contains low-level internal echoes. A small volume of fluid right hemiscrotum is slightly greater than normal (small hydrocele). VARICOCELE None. OTHER FINDINGS None. IMPRESSION: 1. Normal appearance of the testicles. 2. Moderate size complex left hydrocele. Small right hydrocele. MACRO: None Authorizing ProviderResult TypeResult StatusNikky LANGFORD ULTRASOUNDFinal Result * GLUCOSE, FINGERSTICK-IN OFFICE (05/26/2019 9:05 AM EDT)ComponentValueRef Range Test MethodAnalysis TimePerformed AtPathologist SignatureGlucose, ZNZ13667 - 110 mg/dL05/26/2019 9:27 AM EDTNURSING GLUCOSE PROGRAMSpecimen (Source) Anatomical Location / LateralityCollection Method / VolumeCollection Time Received TimeBloodBLOOD SPECIMEN / Hkqlueo3905/26/2019 9:05 AM EDT05/26/2019 9:27 AM EDT Narrative Authorizing ProviderResult TypeResult StatusNikky LANGFORD BACK OFFICE LABS Final ResultPerforming OrganizationAddressCity/State/ZIP CodePhone Number NURSING GLUCOSE PROGRAM [address] [place] [address] * SYPHILIS WITH CONFIRMATION (05/26/2019 8:54 AM EDT)ComponentValueRef RangeTest MethodAnalysis TimePerformed AtPathologist SignatureSyphilis Total (IgG/IgM) Ins-TuqpzwykWrs-Xjwtnirt76/27/2019 4:58 PM [facility] LABORATORYSpecimen (Source)Anatomical Location / LateralityCollection Method / VolumeCollection TimeReceived TimeBloodBLOOD SPECIMEN / UnknownVenipuncture / Nlmogtw6005/26/2019 8:54 AM EDT05/26/2019 3:43 PM EDT Narrative [facility] - 05/26/2019 4:58 PM EDT No Serological evidence of infection with T. pallidum A nonreactive result does not exclude the possibility of exposure to or infection with T. pallidum.??Antibodies may be at low or undetectable levels in incubating or early primary disease and in some clinical conditions. Authorizing ProviderResult TypeResult StatusSara Mauricio LANGFORD HIV/HEP/SYPH TESTINGFinal ResultPerforming OrganizationAddressCity/State/ZIP CodePhone Number [facility] [address] [place] [phone] * HIV1 HIV2 AGAB SCRN (05/26/2019 8:54 AM EDT)ComponentValueRef RangeTest Method Analysis TimePerformed AtPathologist SignatureHIV Ag-Ab ScreenNon-Reactive Non-Jgbtidbs84/27/2019 5:20 PM [facility] LABORATORYComment: No HIV Infection. HIV - 1 UiEcb-BkzizjetXgs-Jmhcudjr01/27/2019 5:20 PM [facility] HIV-1 p24 NgoukaiJee-YbuowksjSbx-Oeteiygf65/27/2019 5:20 PM [facility] LABORATORYHIV-2 FzLuo-BodngbegTve-Ivmpibtq66/27/2019 5:20 PM [facility] LABORATORYSpecimen (Source)Anatomical Location / LateralityCollection Method / VolumeCollection TimeReceived TimeBloodBLOOD SPECIMEN / UnknownVenipuncture / Xeujftq4505/26/2019 8:54 AM EDT05/26/2019 3:43 PM EDT Narrative [facility] - 05/26/2019 5:20 PM EDT HIV Information: [place] Rev. code 3701.243(E): This information has been disclosed to you from confidential records protected from disclosure by state law. ??You shall make no further disclosure of this information without the specific, written, and informed release of the individual to whom it pertains, or as otherwise permitted by state law. ??A general authorization for the release of medical or other information is not sufficient for the purpose of the release of HIV test results or diagnoses. Authorizing ProviderResult TypeResult StatusNikky LANGFORD HIV/HEP/SYPH TESTINGFinal ResultPerforming OrganizationAddressCity/State/ZIP CodePhone Number [facility] [address] [place] [phone] * GC/CHLAMYDIA/TRICHOMONAS AMPLIFICATION (05/26/2019 8:54 AM EDT)ComponentValue Ref RangeTest MethodAnalysis TimePerformed AtPathologist SignatureChlamydia RkguvcebmxxpjYmxykbghAeplaekg06/28/2019 10:26 PM [facility] LABORATORYGC FrbhxowspiiswMhcrrsndUmrxdafp83/28/2019 10:26 PM [facility] Trichomonas RoxqrewntweegSunqorttWqwomtkm54/28/2019 10:26 PM [facility] LABORATORYSpecimen (Source)Anatomical Location / LateralityCollection Method / VolumeCollection TimeReceived TimeOtherMID-STREAM URINE SPECIMEN / Unknown 05/26/2019 8:54 AM EDT05/26/2019 3:44 PM EDT Narrative Authorizing ProviderResult TypeResult StatusNikky LANGFORD MICROBIOLOGYFinal ResultPerforming OrganizationAddressCity/State/ZIP CodePhone Number [facility] [address] [place] [phone] * (ABNORMAL) FULL LIPID PROFILE (05/26/2019 8:54 AM EDT)ComponentValueRef Range Test MethodAnalysis TimePerformed AtPathologist PmpjwtwjnKqbnpealjwz774<181 mg/dL05/26/2019 5:18 PM [facility] GNCKMROJLXPfsnsfapxgvjf619<151 mg/dL 05/26/2019 5:18 PM [facility] LABORATORYHDL Mclxkhhtkyo23(L)>44 mg/dL 05/26/2019 5:18 PM [facility] LABORATORYLDL utqrwlsdssh72<111 mg/dL 05/26/2019 5:18 PM [facility] LABORATORYNon-HDL Dqhuikpeoxj98<130 mg/dL 05/26/2019 5:18 PM [facility] LABORATORYChol/HDL Ratio3.39005/26/2019 5:18 PM [facility] LABORATORYLDL/HDL Ratio2.05<3.5706 5:18 PM [facility] LABORATORYSpecimen (Source)Anatomical Location / Laterality Collection Method / VolumeCollection TimeReceived TimeBloodBLOOD SPECIMEN / UnknownVenipuncture / Gpukrjr5405/26/2019 8:54 AM EDT05/26/2019 3:43 PM EDT Narrative Authorizing ProviderResult TypeResult StatusNikky MCHUGH GENERAL LABFinal ResultPerforming OrganizationAddressCity/State/ZIP CodePhone Number [facility] [address] [place] [phone] * HEMOGLOBIN A1C (05/26/2019 8:54 AM EDT)ComponentValueRef RangeTest Method Analysis TimePerformed AtPathologist SignatureHemoglobin A1c4.94.0 - 5.6 % 05/26/2019 9:00 PM [facility] PATHOLOGY LABORATORYEstimated Avg Lnuvnfw56zi/dL05/26/2019 9:00 PM [facility] Specimen (Source)Anatomical Location / LateralityCollection Method / Volume Collection TimeReceived TimeBloodBLOOD SPECIMEN / UnknownVenipuncture / Ajyzsdj9405/26/2019 8:54 AM EDT05/26/2019 3:43 PM EDT Narrative [facility] - 05/26/2019 9:00 PM EDT HbA1c of 5.7-6.4% have increased risk for diabetes and CV(Source :ADA 2014 Standard of Medical Care in Diabetes) Authorizing ProviderResult TypeResult Wyatt MCHUGH GENERAL LABFinal ResultPerforming OrganizationAddressCity/State/ZIP CodePhone Number [facility] [address] [place] [address], [facility] [[email or web address]] * URINALYSIS,AUTO-IN OFFICE (05/26/2019 8:30 AM EDT)ComponentValueRef RangeTest MethodAnalysis TimePerformed AtPathologist SignatureGlucoseNegativeNegative mg/dLJ. [facility] OTTAWABilirubinNegativeNegativeJ. [facility] OTTAWAKetonesNegativeNegative mg/dLJ. [facility]PITALpec [place] 1.0201.005 - 1.030J. [facility]TTAWABloodNegativeNegativeJ. [facility] OTTAWApH6.55.0 - 8.0J. [facility] OTTAWAProteinNegative Negative mg/dLJ. [facility]VENT[facility]ALTH OTTAWAUrobilinogen0.20.1 - 1.0 mg/dLJ. [facility] OTTAWANitriteNegativeNegativeJ. [facility]AWALeuk. EsteraseNegativeNegativeJ. [facility] OTTAWAColorYellowYellowJ. [facility]TTAWAAppearanceClearClearJ. [facility] [place] HOSPITALpecimen (Source)Anatomical Location / LateralityCollection Method / VolumeCollection TimeReceived TimeUrineURINE SPECIMEN / Orczvkw0205/26/2019 8:30 AM EDT Narrative Authorizing ProviderResult TypeResult StatusNikky [facility] Final ResultPerforming OrganizationAddressCity/State/ZIP CodePhone Number Juni [facility] [address] [place] [address] Visit Diagnoses DiagnosisStart Date Depression, unspecified depression type 08/07/2017 MARTIN (generalized anxiety disorder) Generalized anxiety disorder 08/20/2017 Episode of recurrent major depressive disorder, unspecified depression episode severity (HCC) 08/20/2017 Depression, unspecified depression type 08/20/2017 Routine general medical examination at a health care facility 08/20/2017 Episode of recurrent major depressive disorder, unspecified depression episode severity (HCC) 10/15/2017 Major depressive disorder, recurrent, severe without psychotic features (HCC) Major depressive disorder, recurrent episode, severe, without mention of psychotic behavior 10/15/2017 Gynecomastia, male Hypertrophy of breast 10/15/2017 History of ETOH abuse Nondependent alcohol abuse, in remission 10/15/2017 Excessive daytime sleepiness 10/15/2017 Tinnitus, bilateral Unspecified tinnitus 01/18/2018 FH: hearing loss Family history of deafness or hearing loss 01/18/2018 Excessive daytime sleepiness 01/18/2018 Depression, unspecified depression type 01/18/2018 MARTIN (generalized anxiety disorder) Generalized anxiety disorder 01/18/2018 Major depressive disorder, recurrent, severe without psychotic features (HCC) Major depressive disorder, recurrent episode, severe, without mention of psychotic behavior 01/18/2018 Episode of recurrent major depressive disorder, unspecified depression episode severity (HCC) 01/18/2018 Depression, unspecified depression type 05/23/2018 MARTIN (generalized anxiety disorder) Generalized anxiety disorder 05/23/2018 Episode of recurrent major depressive disorder, unspecified depression episode severity (HCC) 05/23/2018 Depression, unspecified depression type 08/31/2018 MARTIN (generalized anxiety disorder) Generalized anxiety disorder 08/31/2018 Episode of recurrent major depressive disorder, unspecified depression episode severity (HCC) 08/31/2018 Depression, unspecified depression type 03/30/2019 MARTIN (generalized anxiety disorder) Generalized anxiety disorder 03/30/2019 Episode of recurrent major depressive disorder, unspecified depression episode severity (HCC) 03/30/2019 Depression, unspecified depression type 05/26/2019 MARTIN (generalized anxiety disorder) Generalized anxiety disorder 05/26/2019 Episode of recurrent major depressive disorder, unspecified depression episode severity (HCC) 05/26/2019 Frequent urination Urinary frequency 05/26/2019 Dysuria 05/26/2019 Testicular pain Unspecified disorder of male genital organs 05/26/2019 Screening for STD (sexually transmitted disease) Screening examination for venereal disease 05/26/2019 BMI 36.0-36.9,adult Body Mass Index 36.0-36.9, adult 05/26/2019 Prostatitis, unspecified prostatitis type 06/16/2019 Prostatitis, unspecified prostatitis type 08/04/2019 Depression, unspecified depression type 01/09/2020 MARTIN (generalized anxiety disorder) Generalized anxiety disorder 01/09/2020 Episode of recurrent major depressive disorder, unspecified depression episode severity (HCC) 01/09/2020 Depression, unspecified depression type 07/14/2020 MARTIN (generalized anxiety disorder) Generalized anxiety disorder 07/14/2020 Episode of recurrent major depressive disorder, unspecified depression episode severity (HCC) 07/14/2020 Depression, unspecified depression type 03/12/2021 MARTIN (generalized anxiety disorder) Generalized anxiety disorder 03/12/2021 Episode of recurrent major depressive disorder, unspecified depression episode severity (HCC) 03/12/2021 Depression, unspecified depression type 01/05/2022 MARTIN (generalized anxiety disorder) Generalized anxiety disorder 01/05/2022 Episode of recurrent major depressive disorder, unspecified depression episode severity (HCC) 01/05/2022 Annual physical exam Routine general medical examination at a health care facility 05/08/2022 Fatigue, unspecified type 05/08/2022 Snoring Other dyspnea and respiratory abnormality 05/08/2022 Body mass index (BMI) 40.0-44.9, adult 05/08/2022 ENCOUNTER OPENED IN ERROR 05/13/2022 Depression, unspecified depression type 07/15/2022 MARTIN (generalized anxiety disorder) Generalized anxiety disorder 07/15/2022 Episode of recurrent major depressive disorder, unspecified depression episode severity (HCC) 07/15/2022 Depression, unspecified depression type 08/11/2022 MARTIN (generalized anxiety disorder) Generalized anxiety disorder 08/11/2022 Episode of recurrent major depressive disorder, unspecified depression episode severity (HCC) 08/11/2022 Snoring Other dyspnea and respiratory abnormality 11/08/2022 Depression, unspecified depression type 12/13/2022 MARTIN (generalized anxiety disorder) Generalized anxiety disorder 12/13/2022 Episode of recurrent major depressive disorder, unspecified depression episode severity (HCC) 12/13/2022 BRIAN (obstructive sleep apnea) Obstructive sleep apnea (adult) (pediatric) 12/31/2022 Class 3 severe obesity due to excess calories without serious comorbidity with body mass index (BMI) of 40.0 to 44.9 in adult 12/31/2022 Snoring Other dyspnea and respiratory abnormality 12/31/2022 Daytime sleepiness 12/31/2022 BRIAN on CPAP Obstructive sleep apnea (adult) (pediatric) 04/15/2023 Class 3 severe obesity due to excess calories without serious comorbidity with body mass index (BMI) of 40.0 to 44.9 in adult 04/15/2023 Depression, unspecified depression type 07/31/2023 MARTIN (generalized anxiety disorder) Generalized anxiety disorder 07/31/2023 Episode of recurrent major depressive disorder, unspecified depression episode severity (HCC) 07/31/2023 Need for hepatitis C screening test Special screening examination for other specified viral diseases 10/06/2023 Major depressive disorder, recurrent, severe without psychotic features (HCC) Major depressive disorder, recurrent episode, severe, without mention of psychotic behavior 10/06/2023 MARTIN (generalized anxiety disorder) Generalized anxiety disorder 10/06/2023 Annual physical exam Routine general medical examination at a health care facility 10/06/2023 BMI 38.0-38.9,adult Body Mass Index 38.0-38.9, adult 10/06/2023 Chronic pain of both shoulders 10/06/2023 Wears glasses Other specified conditions influencing health status 10/06/2023 Bilateral shoulder pain, unspecified chronicity 02/11/2024 Abnormal posture 02/11/2024 Chronic pain of both shoulders 02/11/2024 Chronic pain of both shoulders 02/16/2024 Radiculopathy, cervical Brachial neuritis or radiculitis nos 02/16/2024 Radiculopathy, cervical Brachial neuritis or radiculitis nos 03/03/2024 Chronic pain of both shoulders 03/03/2024 Radiculopathy, cervical Brachial neuritis or radiculitis nos 03/10/2024 Chronic pain of both shoulders 03/10/2024 Radiculopathy, cervical Brachial neuritis or radiculitis nos 03/17/2024 Chronic pain of both shoulders 03/17/2024 Radiculopathy, cervical Brachial neuritis or radiculitis nos 03/24/2024 Chronic pain of both shoulders 03/24/2024 Radiculopathy, cervical Brachial neuritis or radiculitis nos 03/31/2024 Chronic pain of both shoulders 03/31/2024 Depression, unspecified depression type 07/30/2024 MARTIN (generalized anxiety disorder) Generalized anxiety disorder 07/30/2024 Episode of recurrent major depressive disorder, unspecified depression episode severity (HCC) 07/30/2024 Depression, unspecified depression type 08/26/2025 MARTIN (generalized anxiety disorder) Generalized anxiety disorder 08/26/2025 Episode of recurrent major depressive disorder, unspecified depression episode severity (HCC) 08/26/2025 Care Teams Team MemberRelationshipSpecialtyStart DateEnd Date Nikky Martínez MD [address] [place] [address] PCP - GeneralFamily Wpgqrcbn38/7/23 Solomon Travis APRN-MANAGER [facility] [address] [place] [address] [place] [address] APNPulmonary Medicine01/31/23 Edd Yi, PT [address] [place] [address] Physical TherapistPhysical Therapy03/05/24
--- OUTSIDE RECORDS SUMMARY | 2025-10-21 10:01 | XMS_ITS | Clinical Summary ---
Author Organization [facility] Address [address] [place] [id number] Care Team Providers Care Packing Line Operator Name Role Phone Unavailable Primary Care Provider Unavailabl e Social History Tobacco UseTypesPacks/DayYears UsedDateSmoking Tobacco: Never AssessedArea Deprivation IndexAnswerDate RecordedNational Score (1-100), lower number is lower mamv992702/07/2025State Score (1-10), lower number is lower [id number] Data from: https://www.[email or web address].medicine.[facility]/. Last address used for xk[address]/07/2025Sex and Gender InformationValueDate RecordedSex Assigned at BirthNot on fileLegal VreWsbu0703/06/2022 11:36 AM EDT Gender IdentityNot on fileSexual OrientationNot on file Plan of Treatment Health MaintenanceDue DateLast DoneCommentsAnxiety Jfihohsmh68/11/2011Depression Rhpczvrne54/11/2011HIV Ovjmrriuy88/11/2011Hepatitis C Dzmgdayje15/11/2011 DTaP,Tdap,Td Vaccine (1 - Tdap)2012Hepatitis B Vaccine (1 of 3 - 19+ 3- dose series)2012HPV Vaccine (1 - 3-dose SCDM series)2020Covid-19 Vaccine ( - season)2025Influenza Vaccine (#1)2025 Insurance * Guarantor: Daniele Butterfield TypeRelation to PatientDate of BirthPhone Billing AddressPersonal/RfqonuYwtn1995 [address] [place] [address]
--- OUTSIDE RECORDS SUMMARY | 2025-10-21 10:01 | XMS_ITS | Clinical Summary ---
Author Organization 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 1 Each 03/19/2017Active fluoxetine 20 MG Cap take 1 capsule by mouth daily.. 30 capsule Active FLUOXETINE 20 MG Cap TAKE ONE CAPSULE BY MOUTH DAILY 30 capsule Active Active Problems ProblemNoted DateDiagnosed DateHealth care uitvljcsnfw33/16/2016 Overview (08/15/2016): Last Updated: 08/15/2016 Preventive Health Summary (Male) Cardiovascular Blood pressure 124/70 Cholesterol Antiplatelet therapy Diabetes Obesity Estimated body mass index is 34.81 kg/(m^2) as calculated from the following: Height as of this encounter: 1.803 m (5' 11 ). Weight as of this encounter: 113.2 kg (249 lb 9.6 oz). Cancer Colon Prostate Infectious Disease Influenza Pneumococcal Tetanus Pertussis Hepatitis A & B Shingles Meningococcal Hepatitis C Screening HIV Screening Immunization History Administered Date(s) Administered ??? Td Vaccine 06/14/2016 Bone Fractures Osteoporosis Fall Risk Assessment Mental Health Depression PHQ-9: 11; MARTIN-7: 11 Substance Abuse Current alcohol use Vision Glaucoma Macular degeneration Cataracts Advanced Directives Living Will [facility] POA Code status Abdominal Aortic Aneurysm Major depressive disorder, recurrent, severe without psychotic features 06/20/2016 Overview (08/15/2016): 08/15/16 (PCP) - Establishing care at [facility], [facility] (PCP Dr. 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 Abstinence from alcohol While enrolled [...] appointment with his current outpatient counselor at [facility] for sometime next week. ??? Assertiveness Training [...] with SHEREE Garcia throughout his enrollment in [facility]. Assessment & Plan (06/26/2016 3:49 PM EDT): Goals ??? Abstinence from alcohol While enrolled in [facility], Justin agrees to abstain from drinking alcohol [...] urgesby utilizing the support of his girlfriend. ??? Aftercare Justin agrees to actively participate in discharge and aftercare planning. Prior to discharge, Justin will have appointments set up with an outpatient counselor as well as an outpatient psychiatrist. Tentative discharge date: 07/18/16 ??? Assertiveness Training By the conclusion of treatment, Justin will report increased awareness in communication skills, communication styles, and will know how to use an Assertiveness Script. Justin will attend all groupson interpersonal effectiveness and will utilize process group to practice being assertive. ??? Emotional Literacy By the conclusion of [...] practicing authenticity in front of his peers. ??? Taking medication as prescribed - medication compliance Justin agrees to take medications as prescribed and will talk with staff if he has any questions or experiences any side effects. Justin does not anticipate any compliance issues with medication atthis time. He will follow up with SHEREE Garcia throughout his enrollment in [facility]. Assessment & Plan (06/20/2016 2:37 PM EDT): Partial Hospitalization and Intensive Outpatient Program Treatment Plan Patient's Strengths and Assets at Admission: treatment compliant and currently motivated for treatment. Patient's Limitations at Admission: lacks meaningful/gainful activities and inadequate community linkages. Cultural or Religous factors to consider or incorporate into treatment: None reported by patient Initial Diagnosis: ICD-9-CM ICD-10-CM 1. Alcohol use disorder 291.9 F10.99 2. MARTIN (generalized anxiety disorder) 300.02 F41.1 3. Major depressive disorder, recurrent, severe without psychotic features 296.33 F33.2 Psychosocial stressors: Problems with primary support group, Problems related to social environmentand Relationship problems Presenting Problems To Be Addressed In This Program: Justin is a 20 year old single male referred to PHP/IOP by [facility] to address worsening symptoms of anxiety and depression concurrent with maladaptive coping/self medicative strategies (drinking, self harm). Justin reports chronic depression and apathy, which has become significantly worse over the past few months. He reports he has not hadany alcohol since the weekend of his admit, and also denies current self harming behaviors. Justinpresents with flat affect, soft spoken, and endorses that he is passive. He is bright, empathetic, and motivated for treatment Groups/Services: 5 PHP days, 10-12 IOP days Goals ??? Abstinence from alcohol While enrolled in PHP/IOP, Justin agrees to abstain from drinking alcohol or using illicit substances. Justin understands that if he has issues with this, he can always talk with staff and considerattending 12 step meetings. ??? Aftercare Justin agrees to actively participate in discharge and aftercare planning. Prior to discharge, Justin will have appointments set up with an outpatient counselor as well as an outpatient psychiatrist. Tentative discharge date: 07/18/16 ??? Assertiveness Training By the conclusion of treatment, Justin will report increased awareness in communication skills, communication styles, and will know how to use an Assertiveness Script. Justin will attend all groupson interpersonal effectiveness and will utilize process group to practice being assertive. ??? Emotional Literacy By the conclusion of treatment, Justin will report a better understanding of emotions from a functional perspective, will be able to discern between thoughts (which can be challenged) and emotions (which need to be validated), he will begin using basic Emotional Regulation skills, and will report an improved ability to address his emotions effectively rather than stuff them. ??? Taking medication as prescribed - medication compliance Justin agrees to take medications as prescribed and will talk with staff if he has any questions or experiences any side effects. Justin does not anticipate any compliance issues with medication atthis time. He will follow up with SHEREE Garcia throughout his enrollment in [facility]/IOP. Action Plan:Patient will adhere to medication as prescribed, report barriers and/or side effects, and consult with medical staff about the use of any ontz-ehf-pvwcexz medications, herbals, or supplements. Patient will arrange appointments with outpatient providers. Psychiatric counselors will assist as needed. Attend program groups daily or as scheduled. Report/Demomstrate progress on goals weekly Measures of Progress: Monitor medication with: psychiatrist, medication group, nurse, and psychiatric counselor. No intent to harm self or others evidenced. Symptoms of primary diagnoses stabilized. Family/Support session offered: undecided Patient will have linkage to outpatient psychiatrist, therapist, and/or community resources by discharge date. Record of attendance. Report and/or demonstrate understanding of symptom management tools to staff. Complete standardized rating scales at admission and prior to discharge. Improvement will be evidenced by lowered scores at discharge. Alcohol use iahstfpo14/22/2016 Overview (08/15/2016): 08/15/16 (PCP): - Endorsed 20 drinks/wk with cravings during IP admission in 05/2016 - Started on naltrexone to reduce cravings after 05/2016 admission - Has father and paternal grandfather with alcoholism MARTIN (generalized anxiety disorder)06/20/2016 Overview (08/15/2016): 08/15/16: MARTIN-7: 11 Immunizations ImmunizationAdministration DatesNext DueTd Vaccine 2-2 LF06/14/2016 Family History Medical HistoryRelationNameCommentsHypertensionFatherNo known problemsMother Coronary Artery DiseasePaternal GrandfatherDiabetesPaternal GrandfatherCancer- OtherPaternal GrandmotherCoronary Artery DiseasePaternal UncleRelationNameStatus CommentsFatherMotherPaternal GrandfatherPaternal GrandmotherPaternal Uncle Social History Tobacco UseTypesPacks/DayYears UsedDateSmoking Tobacco: NeverSmokeless Tobacco: NeverAlcohol UseStandard Drinks/WeekCommentsYes0 (1 standard drink = 0.6 oz pure alcohol)12 beers dailySex and Gender InformationValueDate RecordedSex Assigned at BirthNot on fileLegal ZicVqjp6706/14/2016 7:39 PM EDTGender IdentityMaleSexual OrientationNot on file Last Filed Vital Signs Vital SignReadingTime TakenCommentsBlood Iaogstqf698/90006/10/2017 3:13 AM EDT Tggvf082006/10/2017 3:13 AM HQVZwkjicuehsp76.8 ??C (98.2 ??F)06/10/2017 3:13 AM EDTRespiratory Ykfh270406/10/2017 3:13 AM EDTOxygen Bwqansiqjy77%06/10/2017 3:13 AM EDTInhaled Oxygen Concentration--Fuwwuz654.6 kg (281 lb 6.4 oz)03/19/2017 2:34 PM XATZlwimd670.3 cm (5' 11 )06/10/2017 3:06 AM EDTBody Mass Index39.25 12/11/2016 3:43 PM EST Plan of Treatment Health MaintenanceDue DateLast DoneCommentsHEPATITIS C VIRUS HGABVDJSP1993 HIV SCREENING FGTIEQKUWN01/11/2008HEP B VACCINE (1 of 3 - 19+ 3-dose series) 2012TDAP (ADULT)2012HPV VACCINE (1 - 3-dose SCDM series)2020 COVID-19 VACCINE ( - 2024- season)2025INFLUENZA VACCINE (#1)2025 BVWEDAL55/16/PNEUMOCOCCAL VACCINE SERIESAged OutNo longer eligible based on patient's age to complete this topic Goals GoalPatient Goal TypeAssociated ProblemsRecent ProgressPatient-Stated?Author Aftercare Behavioral HealthMajor depressive disorder, recurrent, severe without psychotic featuresVan Billy LISW Note: Justin agrees to actively participate in discharge and aftercare planning. Prior to discharge, Justin will have appointments set up with an outpatient counselor as well as an outpatient psychiatrist. Tentative discharge date: 07/18/1607/07: Justin reports that he feels ready for discharge by the end of this week. He agrees to make an an appointment with his current outpatient counselor at [facility] for sometime next week. Abstinence from alcohol Behavioral HealthMajor depressive disorder, recurrent, severe without psychotic featuresVan Billy LISW Note: While enrolled in PHP/IOP, Justin agrees to [...] support of his girlfriend in this endeavor. Assertiveness Training Behavioral HealthMajor depressive disorder, recurrent, severe without psychotic featuresVan Billy, INDIRA Note: By the conclusion of treatment, Justin will [...] Assertiveness Training group this week before discharge. Emotional Literacy Behavioral HealthMajor depressive disorder, recurrent, severe without psychotic featuresVan Billy, MUFF WINDER Note: By the conclusion of treatment, Justin will [...] paper or an baljit for his phone. Taking medication as prescribed - medication compliance MedicationMajor depressive disorder, recurrent, severe without psychotic featuresVan Billy LISW Note: Justin agrees to take medications as prescribed and will talk with staff if he has any questions or experiences any side effects. Justin does not anticipate any compliance issues with medication atthis time. He will follow up with SHEREE Garcia throughout his enrollment in PHP/IOP. Insurance Advance Directives For more information, please contact: [phone] (7:30 AM - 6PM [facility], Thursday-Thursday) * Full Code (Latest Code Status on File) Date ActivatedDate InactivatedComlemuel [facility]attuck [facility]06/16/2016 6:30 PM06/18/2016 4:57 PM
[2025-10-21 10:40] LABS: Hematocrit 42.5 % (42.0-54.0); Hemoglobin 14.3 g/dL (14.0-18.0); Immature Granulocytes Abs Auto 0.01 10^3/uL (0.00-0.03); Immature Granulocytes Pct Auto 0.2 % (0.0-0.5); Lymphocytes Absolute Auto 2.0 10^3/uL (1.2-3.8); Mean Corpuscular HGB Conc 33.6 g/dL (29.9-35.2); Mean Corpuscular Hemoglobin 28.7 pg (25.9-34.0); Mean Corpuscular Volume 85.2 fL (80.0-94.0); Platelet Count 212 10^3/uL (150-450); Red Blood Count 4.99 10^6/uL (4.70-6.10); White Blood Count 6.5 10^3/uL (4.0-11.0)
[2025-10-21 11:38] LABS: Alanine Aminotransferase 32 U/L (16-63); Albumin Globulin Ratio 1.1; Albumin Level 4.1 g/dL (3.4-5.0); Alkaline Phosphatase 120 U/L (46-116); Anion Gap 8.8; Aspartate Amino Transferase 14 U/L (15-37); Blood Urea Nitrogen 12.0 mg/dL (7.0-18.0); Calcium 9.1 mg/dL (8.5-10.1); Carbon Dioxide 30.3 mmol/L (21.0-32.0); Chloride 104 mmol/L (98-107); Cholesterol 170 mg/dL (<=200); Estimated GFR (African America >60 (>=60 mL/min/1.73m^2); Estimated GFR (Non-African Ame >60 (>=60 mL/min/1.73m^2); Globulin 3.7 g/dL; Glucose 96 mg/dL (74-106); HDL Cholesterol 45 mg/dL (40-60); Potassium 4.1 mmol/L (3.5-5.1); Sodium 139 mmol/L (136-145); TSH W/ REFLEX FT4 0.933 uIU/mL (0.358-3.740); Total Protein 7.8 g/dL (6.4-8.2); Triglycerides 91 mg/dL (<=150); VLDL CHOLESTEROL 18.2 mg/dL
[2025-10-21 11:39] LABS: Ferritin 203.0 ng/mL (26.0-388.0)
[2025-10-21 13:51] LABS: Iron 76.0 ug/dL (65.0-175.0); Percent Iron Saturation 27.0 %; Total Iron Binding Capacity 282.0 ug/dL (250.0-450.0)
== END 2025-10-21 09:52 | disposition home or self-care (01) ==
PROVIDERS: PCP Nurse Practitioner Family; Visit Provider Nurse Practitioner Family
DX: R42 Dizziness and giddiness (principal); R53.83 Other fatigue; Z13.220 Encounter for screening for lipoid disorders
CPT/HCPCS: 36415; 80053; 80061; 82728; 83540; 83550; 84443; 85025